=== PATIENT | female | born 1930 | race Caucasian/White ===

== ENCOUNTER 2017-03-26 11:53 | Inpatient (IN) | payer MEDICARE, OTHER ==
[~2017-03-26] VITALS: Ht 177.8 cm; Wt 80.3 kg
--- NOTE | 2017-03-26 12:00 | NUR ---
PHI BLOUNT FROM [facility] MEDICALLY CLEARED NEEDS PSYCH EVAL FOR ANXIETY. PT HAD PRESCRIPTION FOR UTI . DR TEMPLETON ACCEPTING, NAD NOTED, VSS, ON HOSPITAL GOWN AND MONITOR. WAITING FOR MD STEPHENS
[2017-03-26 12:34] LABS: BASOPHILS # (AUTO) 0.2 /CMM (0.0-0.2); BASOPHILS % (AUTO) 1.3 % (0.0-2.0); EOSINOPHILS # (AUTO) 0.2 /CMM (0.0-0.7); HEMATOCRIT 41 % (33-45); HEMOGLOBIN 13.6 g/dL (11.5-14.8); LYMPHOCYTES # (AUTO) 1.9 /CMM (0.8-4.8); LYMPHOCYTES % (AUTO) 15.6 % (20.0-44.0); MEAN CORPUSCULAR HEMOGLOBIN 28 PG (26.0-33.0); MEAN CORPUSCULAR HGB CONC 33 g/dl (31.0-36.0); MEAN CORPUSCULAR VOLUME 86 fL (82-100); MONOCYTES # (AUTO) 1.4 /CMM (0.1-1.30); MONOCYTES % (AUTO) 11.9 % (2.0-12.0); NEUTROPHILS # (AUTO) 8.4 /CMM (1.8-8.9); NEUTROPHILS % (AUTO) 69.2 % (43.0-81.0); PLATELET COUNT (AUTO) 259 /CMM (150-450); RDW COEFFICIENT OF VARIATION 14.2 (11.5-15.0); RED BLOOD CELL COUNT(AUTO) 4.78 MIL/uL (4.0-5.2); WHITE BLOOD COUNT (AUTO) 12.1 K/uL (4.3-11.0)
[2017-03-26 12:44] LABS: CALCIUM, SERUM 9.6 mg/dL (8.5-10.1); CARBON DIOXIDE 29 mmol/L (21-32); CHLORIDE 104 mmol/L (98-107); GLUCOSE 105 mg/dL (74-106); POTASSIUM 3.8 mmol/L (3.5-5.1); SODIUM SERUM 139 mmol/L (136-145); UREA NITROGEN, BLOOD 19 mg/dL (7-18)
[2017-03-26 12:50] LABS: ALANINE AMINOTRANSFERASE 18 U/L (12-78); ALBUMIN 3.7 g/dL (3.4-5.0); ALCOHOL, BLOOD < 3 mg/dL (0-0); ALKALINE PHOSPHATASE 95 U/L (46-116); ASPARTATE AMINOTRANSFERASE 23 U/L (15-37); BILIRUBIN,DIRECT 0.2 mg/dL (0.0-0.2); BILIRUBIN,TOTAL 0.9 mg/dL (0.2-1.0); TOTAL PROTEIN, SERUM 7.1 g/dL (6.4-8.2)
[2017-03-26 12:51] LABS: ACETAMINOPHEN 0 ug/ml (10-30); SALICYLATE 0.3 mg/dL (2.8-20.0)
[2017-03-26 13:19] LABS: APPEARANCE,URINE Slightly Cloudy (CLEAR); BILIRUBIN,URINE Negative (NEGATIVE); BLOOD, URINE Negative Ery/uL (NEGATIVE); COLOR,URINE Yellow (YELLOW); KETONES,URINE 15 (NEGATIVE); LEUKOCYTE ESTERASE ,URINE Negative (NEGATIVE); NITRITE, URINE Negative (NEGATIVE); PH,URINE 7.5 (5.0-8.0); PROTEIN,URINE Negative (NEGATIVE); UGLUCOSE Negative (NEGATIVE); UROBILINOGEN,URINE 0.2 EU/dL (0.2)
[2017-03-26] MEDS ORDERED: CIPR-262 PO (13:26)
[2017-03-26 13:29] LABS: BACTERIA,URINE Rare /HPF (None Seen); RBC,URINE 0-2 /HPF (0-2); SQUAMOUS EPITHELIAL CELL,UR Few /HPF (None Seen); WBC,URINE 0-2 /HPF (0-3)
--- NOTE | 2017-03-26 14:10 | NUR ---
BED 219A
[2017-03-26 14:50] VITALS: BP 142/69
--- NOTE | 2017-03-26 14:50 | NUR ---
HAT MARKER NOTES PATIENT ADMITTED FROM ER ON 5150 HOLD ON DX OF GRAVELY DISABLE, DANGER TO OTHERS. ON 5150 HOLD PATIENT A/O X1, CONFUSED, DISORGANIZED THOUGHTS,UNKEMPT, NEED REDIRECTION, PATIENT AMBULATOR, UNSTEADY GAIT. V/S TAKEN BP-142/ 69, P-80, R-18, O2-98 ROOM AIR, T- 98.2. ON FACE TO FACE ASSESSMENT, PATIENT CONFUSED, REFUSED SKIN ASSESSMENT, HARD TO FOLLOW DIRECTION. PATIENT BELONGING AND CONTRABAND CHECKED, DR ERWIN, AND DR. BURCH AWARE OF NEW PATIENT, AND MEDICATION.
[2017-03-26] MEDS ORDERED: MAG HYDROX/AL HYDROX/SIMETH 30 ML UDC PO PRN (15:00)
[2017-03-26] MEDS ORDERED: MAGNESIUM HYDROXIDE 30 ML UDC PO PRN (15:00)
[2017-03-26] MEDS ORDERED: ACETAMINOPHEN 325 MG TABLET PO PRN (15:00)
[2017-03-26 16:00] VITALS: BP 142/69
[2017-03-26] MEDS ORDERED: HYDR-548 PO (16:17)
[2017-03-26] MEDS ORDERED: TRAM50TA2 PO (16:17)
[2017-03-26] MEDS ORDERED: LORA0.5T PO (16:17)
[2017-03-26] MEDS ORDERED: HALO5VIA12 IM (16:17)
[2017-03-26] MEDS ORDERED: QUET25TA PO (16:37)
[2017-03-26] MEDS ORDERED: HALO5TAB PO (16:37)
[2017-03-26] MEDS ORDERED: AMLO2.5T PO (16:37)
[2017-03-26] MEDS ORDERED: TRAMADOL HCL 50 MG TABLET PO PRN (17:30)
[2017-03-26 20:00] VITALS: BP 125/80
[2017-03-26] MEDS: clonazePAM 0.5 MG TABLET PO PRN (20:52)
[2017-03-27] MEDS: TEMAZEPAM 7.5 MG CAPSULE PO PRN (01:19)
[2017-03-27] MEDS: clonazePAM 0.5 MG TABLET PO PRN ×2 (04:39→21:45)
[2017-03-27 07:52] LABS: ALANINE AMINOTRANSFERASE 23 U/L (12-78); ALBUMIN 3.6 g/dL (3.4-5.0); ALKALINE PHOSPHATASE 89 U/L (46-116); ASPARTATE AMINOTRANSFERASE 23 U/L (15-37); BILIRUBIN,TOTAL 0.8 mg/dL (0.2-1.0); CALCIUM, SERUM 9.6 mg/dL (8.5-10.1); CARBON DIOXIDE 26 mmol/L (21-32); CHLORIDE 104 mmol/L (98-107); CREATININE 1.1 mg/dL (0.6-1.3); GLUCOSE 87 mg/dL (74-106); POTASSIUM 3.4 mmol/L (3.5-5.1); SODIUM SERUM 139 mmol/L (136-145); TOTAL PROTEIN, SERUM 7.2 g/dL (6.4-8.2); UREA NITROGEN, BLOOD 22 mg/dL (7-18)
[2017-03-27 08:00] VITALS: BP 116/69
[2017-03-27 08:01] LABS: CHOLESTEROL 201 mg/dL (<200); HDL CHOLESTEROL 79 mg/dL (40-60); LDL 108 mg/dL (0-99); TRIGLYCERIDES 29 mg/dL (30-150)
[2017-03-27] MEDS ORDERED: POTASSIUM CHLORIDE 20 MEQ TAB.PRT.SR PO SCH (10:00)
--- NOTE | 2017-03-27 10:12 | NUR ---
UR Review: LINDA received a voicemail from Niurka, patient post anesthesia care unit nurse, ext [phone]. In the voicemail, Niurka stated that the patient was only authorized through today, 03/27. Niurka stated that clinicals were needed in order for more days to be authorized. LINDA called Niurka and reached her voicemail. LINDA stated that there is no H&P from psychiatric doctor, as patient is a new admit. LINDA informed Niurka that patient is on 5150 hold and reviewed medication and medical doctor consultation. LINDA will follow up later in the day if she does not hear from Niurka.
[2017-03-27 11:00] VITALS: BP 137/57
[2017-03-27] MEDS: AMLODIPINE BESYLATE 2.5 MG TABLET PO SCH (11:03)
--- NOTE | 2017-03-27 12:32 | NUR ---
UR Update: LINDA heard back from Niurka [phone] ext [phone] who stated that patient will be authorized through the weekend and asked LINDA to call her on Thursday with an updated clinical. LINDA will follow up on Thursday.
--- NOTE | 2017-03-27 12:32 | NUR ---
Initial Discharge Plan Patient resides at [address] [place], [place] [id number], and states that she wants to go home. LINDA attempted to contact patient's son, Álvaro Hsieh at [phone] / [phone] but was unable to reach him. Both phone numbers are disconnected.LINDA will consult with MD and will work to form a safe and proper discharge.
[2017-03-27 16:09] VITALS: BP 155/70
[2017-03-27] MEDS: BENZTROPINE MESYLATE (1 MG) 1 MG TABLET PO SCH (17:12)
[2017-03-27] MEDS: HALOPERIDOL 5 MG TABLET PO SCH (17:12)
[2017-03-27 20:00] VITALS: BP 146/63
[2017-03-28] MEDS: TEMAZEPAM 7.5 MG CAPSULE PO PRN ×2 (01:38→21:47)
[2017-03-28 07:53] LABS: CALCIUM, SERUM 9.6 mg/dL (8.5-10.1); CARBON DIOXIDE 26 mmol/L (21-32); CHLORIDE 105 mmol/L (98-107); GLUCOSE 91 mg/dL (74-106); POTASSIUM 4.9 mmol/L (3.5-5.1); SODIUM SERUM 138 mmol/L (136-145); UREA NITROGEN, BLOOD 22 mg/dL (7-18)
[2017-03-28 08:00] VITALS: BP 148/63
[2017-03-28] MEDS: BENZTROPINE MESYLATE (1 MG) 1 MG TABLET PO SCH ×2 (09:25→16:35)
[2017-03-28] MEDS: HALOPERIDOL 5 MG TABLET PO SCH ×2 (09:26→16:35)
[2017-03-28] MEDS: AMLODIPINE BESYLATE 2.5 MG TABLET PO SCH (09:26)
[2017-03-28 16:00] VITALS: BP 126/60
[2017-03-28 20:00] VITALS: BP 136/63
[2017-03-28] MEDS: clonazePAM 0.5 MG TABLET PO PRN (20:31)
--- NOTE | 2017-03-28 20:35 | NUR ---
PT IS AGITATED. CLONAZEPAM 0.25MG PO GIVEN ORDERED. WILL CONTINUE TO MONITOR FOR SAFETY AND BEHAVIOR [id number].
[2017-03-29 08:00] VITALS: BP 130/79
[2017-03-29] MEDS: BENZTROPINE MESYLATE (1 MG) 1 MG TABLET PO SCH ×2 (08:26→16:32)
[2017-03-29] MEDS: HALOPERIDOL 5 MG TABLET PO SCH ×2 (08:26→16:32)
[2017-03-29] MEDS: AMLODIPINE BESYLATE 2.5 MG TABLET PO SCH (08:26)
[2017-03-29 15:42] VITALS: BP 145/58
[2017-03-29 20:54] VITALS: BP_SYST 134; BP_SYST 167; BP_DIAS 81; BP_DIAS 85
[2017-03-29] MEDS: TEMAZEPAM 7.5 MG CAPSULE PO PRN ×2 (20:57→21:49)
--- NOTE | 2017-03-29 21:49 | NUR ---
GPS RN NOTES: PATIENT IS AGITATED, V/S STABLE. CLONAZEPAM 0.25MG GIVEN ORDERED. WILL CONTINUE TO MONITOR PATIENT SAFETY AND BEHAVIOR [id number].
[2017-03-29] MEDS: clonazePAM 0.5 MG TABLET PO PRN (21:50)
--- NOTE | 2017-03-29 21:50 | NUR ---
GPS RN NOTES: PATIENT AWAKE. PATIENT UNABLE TO SLEEP AT THIS TIME. V/S STABLE. RESTORIL 7.5MG PO GIVEN ORDERED. WILL CONTINUE TO ASSESS PATIENT SAFETY AND BEHAVIOR [id number] AND MONITOR HOURS OF SLEEP.
[2017-03-30 08:00] VITALS: BP 121/54
[2017-03-30] MEDS: AMLODIPINE BESYLATE 2.5 MG TABLET PO SCH (09:00)
[2017-03-30] MEDS: HALOPERIDOL 5 MG TABLET PO SCH ×2 (09:38→16:53)
[2017-03-30] MEDS: BENZTROPINE MESYLATE (1 MG) 1 MG TABLET PO SCH ×2 (09:39→16:53)
--- NOTE | 2017-03-30 09:52 | NUR ---
UR Update: LINDA called and left a verbal clinical for Niurka [phone] ext [phone], who is the patient landcare officer and flowers salesperson from insurance. LINDA will follow up with Niurka to discuss authorized days for patient.
--- NOTE | 2017-03-30 10:26 | NUR ---
UR Update: LINDA spoke with Niurka [phone] ext [phone] who informed LINDA that she wanted a peer review conducted. LINDA then spoke with pt's psychiatrist, Dr. Franco who stated that he feels patient is stable enough to be discharged today. LINDA will work on discharge planning.
--- NOTE | 2017-03-30 10:27 | NUR ---
LINDA spoke with Scot from pt's facility who stated that he had some concerns regarding patient being discharged today. LINDA explained that the insurance is no longer authorizing and that psychiatrist had cleared patient. LINDA stated that she will fax over progress notes to facility but that she cannot hold patient past today.
--- NOTE | 2017-03-30 10:30 | NUR ---
GPS.RN PATIENT REFUSED FULL SKIN ASSESSMENT. SKIN DISCOLORATION NOTED ON ARMS AND LOWER LEGS.
--- NOTE | 2017-03-30 11:41 | NUR ---
LINDA attempted to contact Niurka [phone] ext [phone] from insurance [patient adult live in caregiver] to obtain a list of contracted medical doctors + psychiatrists, as well as to arrange transforation. LINDA left a voicemail with a call back number.
--- NOTE | 2017-03-30 14:02 | NUR ---
Discharge Note Patient will be discharged to a [facility] and [address] at 4pm by transportation arranged by healthcare social worker through [employer]. Scot [phone] at the [facility] and [facility] has been notified. The patient does not have family to notify, as phone numbers that were provided are disconnected. LINDA provided the name and contact number for the pharmacy that patient goes to: [facility] [phone] / fax number [phone]. Patient has an appointment with a psychiatrist Dr. Lisandra De La Torre [phone] [facility] [address] on April 29. LINDA was informed by hr receptionist that patient would need to call to confirm this appointment and that ILNDA could not make that confirmation for her. Patient was also referred to an it intern at [facility] [address] [facility]
--- NOTE | 2017-03-30 14:02 | NUR ---
LINDA was informed by Niurka that the insurance does not authorize transportation. Niurka sent LINDA a list of contracted psychiatrists but stated that she cannot provide the medical doctors.
[2017-03-30 16:37] VITALS: BP 153/64
--- NOTE | 2017-03-30 18:00 | NUR ---
GPS/RN PATIENT CLEARED FOR DISCHARGE BY DR ERWIN AND QUINCY SERNA TO [facility]. [address] [place], [place] [phone]. [facility] AT FACILITY WAS CONTACTED BY WIPER BLENDER AND IS AWARE THAT TRANSPORT PICKUP IS ESTIMATED AT 1600. PRESCRIPTIONS FAXED TO [facility] [phone]. ALL BELONGINGS RETURNED TO PATIENT, DISCHARGE PACKET AND MEDICATIONS EXPLAINED TO PATIENT HOWEVER, SHE IS CONFUSED. PATIENT DENIES SI/HI/AH UPON DISCHARGE, PSYCHIATRIC TREATMENT PLANS MET, PATIENT REFUSED SKIN ASSESSMENT UPON DISCHARGE. LEFT UNIT CALM, COOPERATIVE, NO DISTRESS WITH [employer] AND EMPLOYEE BENEFITS DIRECTOR AT SIDE.
== END 2017-03-30 18:00 | disposition home or self-care (01) | DRG 885 ==
LOC: ER 12:12 → GPS 14:19
PROVIDERS: ADMIT Psychiatry & Neurology Psychiatry; ATTEND Psychiatry & Neurology Psychiatry
DX: F29 Unspecified psychosis not due to a substance or known physiological condition (principal); F03.91 Unspecified dementia, unspecified severity, with behavioral disturbance; I10 Essential (primary) hypertension; Z79.899 Other long term (current) drug therapy; D72.829 Elevated white blood cell count, unspecified
CPT/HCPCS: 36415; 80048-TC; 80053-TC; 80061-TC; 80076-TC; 80305; 81000-TC; 85025-TC; 87081-TC; A4606; A6402; G0480; Z7610